=== PATIENT | female | born 1940 | race Asian ===

== ENCOUNTER → 2017-09-05 | Outpatient (CLI) | payer OTHER, MEDICAID | LOC: CIMAGING 09:09 | PROVIDERS: ATTEND Family Medicine | DX: M25.512 Pain in left shoulder (principal) | CPT/HCPCS: 73030-PO ==

== ENCOUNTER → 2018-10-16 | Outpatient (CLI) | payer OTHER, MEDICAID | LOC: BMCIMAGING 10:04 ==